=== PATIENT | female | born 1970 | race Caucasian/White ===

== ENCOUNTER → 2016-09-30 | Outpatient (CLI) | payer BC, OTHER ==
[~2016-09-30] VITALS: Ht 165.1 cm; Wt 111.1 kg
[~2016-09-30] MED LIST: ADVIL PO; IBUP600T OR; LIDOCAINE 2% INJ 100 MG/5 ML SDV (FOR ANES.) As Ordered ONE; MULTIVIT PO; OXYB5TA PO; PRILOSEC OTC PO; PROPOFOL 200 MG/20 ML VIAL As Ordered ONE; PROT1TAB2 PO; VICO5TAB OR
--- NOTE | 2016-09-30 13:12 | ROOR ---
Patient Name: Liane Lawson Procedure Date: 09/30/2016 12:37 PM Date of : 1970 Age: 46 [place]: [facility] [place] Gender: Female Note Status: Finalized Procedure: Colonoscopy to Cecum Indications: Colon cancer screening in patient at increased risk: Colorectal cancer in father Providers: Scot Monterroso MD Referring MD: LANE Benitez Requesting Provider: Medicines: Monitored Anesthesia Care Complications: No immediate complications. Procedure: Pre-Anesthesia Assessment: - The heart rate, respiratory rate, oxygen saturations, blood pressure, adequacy of pulmonary ventilation, and response to care were monitored throughout the procedure. The Colonoscope was introduced through the anus and advanced to the cecum, identified by appendiceal orifice and ileocecal valve. The colonoscopy was performed without difficulty. The patient tolerated the procedure well. The quality of the bowel preparation was excellent. Findings: The perianal and digital rectal examinations were normal. Non-bleeding internal hemorrhoids were found during retroflexion. The hemorrhoids were small and Grade I (internal hemorrhoids that do not prolapse). No other significant abnormalities were identified in a careful examination of the remainder of the colon. The exam was otherwise without abnormality on direct and retroflexion views. Impression: - Non-bleeding internal hemorrhoids. - The examination was otherwise normal on direct and retroflexion views. - No specimens collected. - The exam was otherwise normal to the cecum. Recommendation: - Patient has a contact number available for emergencies. The signs and symptoms of potential delayed complications were discussed with the patient. Return to normal activities tomorrow. Written discharge instructions were provided to the patient. - High fiber diet. - Discharge patient to home. - Continue present medications. - Repeat colonoscopy in 5 years for screening purposes. - Return to referring physician. - The findings and recommendations were discussed with the patient's family. Scot Monterroso MD Scot Monterroso MD 09/30/2016 1:11:50 PM This report has been signed electronically. Number of Addenda: 0 Note Initiated On: 09/30/2016 12:37 PM Estimated Blood Loss: Estimated blood loss: none.
[2016-09-30 13:20] VITALS: BP 142/96
== END ==
LOC: M OPP 11:15
PROVIDERS: ATTEND Internal Medicine Gastroenterology
DX: Z12.11 Encounter for screening for malignant neoplasm of colon (principal); K64.0 First degree hemorrhoids; Z80.0 Family history of malignant neoplasm of digestive organs; Z88.5 Allergy status to narcotic agent; Z88.2 Allergy status to sulfonamides; R12 Heartburn; E66.9 Obesity, unspecified; T75.3XXS Motion sickness, sequela; Y93.9 Activity, unspecified; Y92.9 Unspecified place or not applicable; Z79.899 Other long term (current) drug therapy; Z80.42 Family history of malignant neoplasm of prostate; Z57.8 Occupational exposure to other risk factors

== ENCOUNTER → 2018-03-25 | Outpatient (CLI) | payer BC, OTHER | LOC: M ADAMS 11:58 | DX: M54.31 Sciatica, right side (principal) | CPT/HCPCS: 72100 ==

== ENCOUNTER → 2020-07-08 | Outpatient (CLI) | payer BC ==
[~2020-07-08] MED LIST changes: -LIDOCAINE 2% INJ 100 MG/5 ML SDV (FOR ANES.) As Ordered ONE; -OXYB5TA PO; +OXYB5TAB10 PO; -PROPOFOL 200 MG/20 ML VIAL As Ordered ONE
--- NOTE | 2020-07-08 11:31 | REPMRS ---
Patient History The patient states she had a clinical breast exam in 2019. Family history of colorectal cancer at age 50 in father, unknown cancer at age 68 in paternal grandmother. Took hormonal contraceptives for 25 years. Digital Woman Screen Mammo: July 08, 2020 - Exam #: [id number] Bilateral CC and MLO view(s) were taken. Technologist: Cayla Katz, Technologist Prior study comparison: September 12, 2018, bilateral digital mammo screening bilat, performed at [facility]. December 16, 2016, bilateral digital mammo screening bilat, performed at [facility]. November 22, 2015, bilateral digital mammo screening bilat, performed at [facility]. FINDINGS: There are scattered fibroglandular densities. The Volpara volumetric breast density category is: B. There is a moderate amount of residual fibroglandular tissue which is fairly symmetric. There is no interval development of dominant mass, architectural distortion, or grouped microcalcification typical of malignancy. There has been no change in the appearance of the mammogram from the prior studies. 3-D tomosynthesis shows no additional findings. Assessment: BI-RADS/ACR category 1 mammogram. Negative Mammogram. Recommendation Routine screening mammogram of both breasts in 1 year (for women over age 40). This patient's Lifetime Breast Cancer RIsk is estimated at 8.6 %. This mammogram was interpreted with the aid of an FDA-approved computer-aided dectection system. Electronically Signed By: Rancho Chase MD 07/08/20 [id number]
== END ==
LOC: M WHC 10:37
PROVIDERS: ATTEND Obstetrics & Gynecology
DX: Z12.31 Encounter for screening mammogram for malignant neoplasm of breast (principal); Z80.0 Family history of malignant neoplasm of digestive organs; Z92.0 Personal history of contraception

== ENCOUNTER → 2020-08-13 | Outpatient (REF) | payer OTHER ==
[2020-08-13 10:24] LABS: BASO % 0.4 % (0.0-1.0); EOS # 0.1 10^3/uL (0.0-0.5); EOS % 1.8 % (0.0-3.0); HEMATOCRIT 38.7 % (36.0-47.0); HEMOGLOBIN 12.1 g/dl (12.0-15.5); LYMPH # 1.6 10^3/uL (1.5-5.0); LYMPH % 23.9 % (24.0-44.0); MEAN CORPUSCULAR HEMOGLOBIN 26.1 pg (27.0-33.0); MEAN CORPUSCULAR HGB CONC 31.3 g/dl (32.0-36.5); MEAN CORPUSCULAR VOLUME 83.6 fl (80.0-96.0); MONO # 0.3 10^3/uL (0.0-0.8); NEUTROPHILS # 4.7 10^3/uL (1.5-8.5); NEUTROPHILS % 68.5 % (36.0-66.0); PLATELET COUNT, AUTOMATED 192 10^3/uL (150-450); RED BLOOD COUNT 4.63 10^6/uL (4.00-5.40); WHITE BLOOD COUNT 6.8 10^3/uL (4.0-10.0)
[2020-08-13 11:13] LABS: ALBUMIN 3.9 GM/DL (3.2-5.2); ALT/SGPT 25 U/L (12-78); BILIRUBIN,TOTAL 0.4 MG/DL (0.2-1.0); BLOOD UREA NITROGEN 17 MG/DL (7-18); CARBON DIOXIDE LEVEL 28 MEQ/L (21-32); CHLORIDE LEVEL 105 MEQ/L (98-107); CHOLESTEROL LEVEL 230 MG/DL (<200); CHOLESTEROL RISK RATIO 6.216 (<5); CREATININE FOR GFR 0.71 MG/DL (0.55-1.30); GLOMERULAR FILTRATION RATE > 60.0 (>51); GLUCOSE, FASTING 103 MG/DL (70-100); HDL CHOLESTEROL 37 MG/DL (>40); LDL CHOLESTEROL 164 MG/DL (<100); NON-HDL-C 193 MG/DL; POTASSIUM SERUM 4.4 MEQ/L (3.5-5.1); SODIUM LEVEL 139 MEQ/L (136-145); TOTAL 25(OH) VITAMIN D 30.2 NG/ML (30.0-100.0); TOTAL PROTEIN 7.7 GM/DL (6.4-8.2); TRIGLYCERIDES LEVEL 144 MG/DL (<150)
[2020-08-13 12:13] LABS: HEMOGLOBIN A1c 5.4 %
== END ==
LOC: M PLALAB 07:58
PROVIDERS: ATTEND Physician Assistant Medical
DX: K21.9 Gastro-esophageal reflux disease without esophagitis (principal); N39.3 Stress incontinence (female) (male); E66.01 Morbid (severe) obesity due to excess calories; F34.1 Dysthymic disorder; E55.9 Vitamin D deficiency, unspecified; E78.2 Mixed hyperlipidemia; Z80.0 Family history of malignant neoplasm of digestive organs

== ENCOUNTER → 2020-09-03 | Outpatient (CLI) | payer SELFPAY | LOC: M LABSMTC 14:30 | PROVIDERS: ATTEND Pediatrics | DX: Z11.59 Encounter for screening for other viral diseases (principal) ==

== ENCOUNTER 2021-01-16 23:12 | Emergency (ER) | payer BC, SELFPAY ==
[~2021-01-16] VITALS: Ht 165.1 cm; Wt 113.1 kg
[2021-01-16] MEDS ORDERED: TROS60CA2 PO (23:28)
[2021-01-16] MEDS ORDERED: DIAZ2TAB PO (23:28)
[2021-01-16] MEDS ORDERED: DULO1CAP6 PO (23:28)
[2021-01-16] MEDS ORDERED: diazePAM 10MG/2ML SYRINGE (J3360 PER 5MG) IV ONE (23:40)
[2021-01-16] MEDS ORDERED: NS 1,000 ML IV SCH (23:40)
[2021-01-16] MEDS ORDERED: ASPIRIN 81 MG CHEW TABLET PO ONE (23:40)
[2021-01-16 23:47] LABS: BASO % 0.5 % (0.0-1.0); EOS # 0.1 10^3/uL (0.0-0.5); EOS % 1.7 % (0.0-3.0); HEMATOCRIT 37.9 % (36.0-47.0); HEMOGLOBIN 12.3 g/dl (12.0-15.5); LYMPH # 2.8 10^3/uL (1.5-5.0); LYMPH % 32.5 % (24.0-44.0); MEAN CORPUSCULAR HGB CONC 32.5 g/dl (32.0-36.5); MEAN CORPUSCULAR VOLUME 83.3 fl (80.0-96.0); MONO # 0.6 10^3/uL (0.0-0.8); MONO % 6.9 % (2.0-8.0); NEUTROPHILS # 4.9 10^3/uL (1.5-8.5); PLATELET COUNT, AUTOMATED 209 10^3/uL (150-450); RED BLOOD COUNT 4.55 10^6/uL (4.00-5.40); WHITE BLOOD COUNT 8.5 10^3/uL (4.0-10.0)
[2021-01-16 23:58] LABS: INR 0.98; PROTHROMBIN TIME 13.1 SECONDS (12.5-14.3)
[2021-01-17 00:18] LABS: ALBUMIN 4.1 GM/DL (3.2-5.2); ALT/SGPT 26 U/L (12-78); BILIRUBIN,DIRECT < 0.1 MG/DL (0.0-0.2); BILIRUBIN,TOTAL 0.3 MG/DL (0.2-1.0); BLOOD UREA NITROGEN 19 MG/DL (7-18); CALCIUM LEVEL 8.6 MG/DL (8.5-10.1); CARBON DIOXIDE LEVEL 27 MEQ/L (21-32); CHLORIDE LEVEL 105 MEQ/L (98-107); CK-MB VALUE MASS < 1.0 NG/ML (<3.6); CPK CREATINE PHOSPHOKINASE 49 U/L (26-192); CREATININE FOR GFR 0.72 MG/DL (0.55-1.30); FREE T4 1.05 NG/DL (0.76-1.46); GLOMERULAR FILTRATION RATE > 60.0 (>51); GLUCOSE, FASTING 105 MG/DL (70-100); LIPASE 151 U/L (73-393); MB/CK RELATIVE INDEX 2.04 (< OR =4); POTASSIUM SERUM 3.9 MEQ/L (3.5-5.1); SODIUM LEVEL 139 MEQ/L (136-145); TOTAL PROTEIN 7.8 GM/DL (6.4-8.2); TROPONIN I < 0.02 NG/ML (< 0.10)
--- NOTE | 2021-01-17 00:47 | REPVR ---
PROCEDURE INFORMATION: Exam: XR Chest Exam date and time: 01/16/2021 12:08 AM Age: 50 years old Clinical indication: Other: Chest pain TECHNIQUE: Imaging protocol: XR of the chest. Views: 1 view. COMPARISON: No relevant prior studies available. FINDINGS: Lungs: Unremarkable. No consolidation. Pleural spaces: Unremarkable. No pleural effusion. No pneumothorax. Heart/Mediastinum: Unremarkable. No cardiomegaly. Bones/joints: Unremarkable. IMPRESSION: No acute infiltrates. Electronically signed by: Adria Kenyon On 01/17/2021 00:47:14 AM
[2021-01-17 01:25] LABS: D-DIMER QUANT < 270 ng/ml (<500)
[2021-01-17 04:19] LABS: CK-MB VALUE MASS < 1.0 NG/ML (<3.6); CPK CREATINE PHOSPHOKINASE 43 U/L (26-192); MB/CK RELATIVE INDEX 2.33 (< OR =4); TROPONIN I < 0.02 NG/ML (< 0.10)
[2021-01-17 04:45] VITALS: BP 138/74
--- NOTE | 2021-01-17 18:09 | ECGEPIP ---
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
--- NOTE | 2021-01-17 18:12 | ECGEPIP ---
[facility] - ED Test Date: 2021-01-17 Pat Name: HAMIDA MENDOZA Department: Room: - Gender: Female Joint Cutter: ÁNGEL : 1970 Requested By: KORY Casillas Order Number: [id number] Reading MD: Kory Salcedo Measurements Intervals [place] Rate: 77 P: 46 [place]: 138 QRS: -10 QRSD: 98 T: 9 QT: 402 QTc: 454 Interpretive Statements Normal sinus rhythm Nonspecific T wave abnormality Baseline artifact Similar to tracing done 01-16-21 Electronically Signed on 01-17-2021 18:11:46 EDT by Kory Salcedo
== END 2021-01-17 04:52 | disposition home or self-care (01) ==
LOC: M ED 23:12
DX: R07.9 Chest pain, unspecified (principal); R00.2 Palpitations; I10 Essential (primary) hypertension; K21.9 Gastro-esophageal reflux disease without esophagitis; F17.200 Nicotine dependence, unspecified, uncomplicated
CPT/HCPCS: 71045; 80048; 80076; 82550; 82553; 83690; 84439; 84443; 84484; 85025; 85379; 85610; 93005; 93041; 94760; 96361; 96374; 99285; J3360

== ENCOUNTER → 2021-05-02 | Outpatient (CLI) | payer BC, OTHER ==
[~2021-05-02] MED LIST changes: +DIAZ2TAB PO; +DULO1CAP6 PO; +TROS60CA2 PO
== END ==
LOC: M SLEEP 20:00
PROVIDERS: ATTEND Nurse Practitioner Adult Health
DX: G47.33 Obstructive sleep apnea (adult) (pediatric) (principal)

== ENCOUNTER → 2021-05-22 | Outpatient (CLI) | payer BC, OTHER ==
--- NOTE | 2021-05-26 09:38 | SLEEPCENT ---
DATE: 05/22/2021 ORDERED BY: Olimpia Arriaga NP Nocturnal polysomnography was performed for the titration of pressure therapy in this patient with obstructive sleep apnea syndrome, apnea-hypopnea index of 8.8. For testing a ResMed F20 full face mask of medium size was used, 4 cm of water pressure were initially applied to the circuit, and the lights were extinguished. Eight hours and 38 minutes of data were reviewed. There were 408.5 minutes of sleep identified. Sleep latency was short at 9.5 minutes. REM latency was quite prolonged at 414 minutes. Sleep architecture showed poor progression early in the study. There was only one REM cycle late in the test. Overall sleep efficiency was 80.1%. The electrocardiogram showed a sinus rhythm with an average heart rate of 80 beats per minute. EEG showed normal waveforms for wake and sleep. Hypopneic respiratory events prompted increases in pressure therapy. Events persisted. Best sleep was seen on a CPAP pressure of 19 with which pressure the patient slept through REM without respiratory event or oxygen desaturation in the supine posture. There were a few limb movements noted and remaining measures of sleep physiology were normal. IMPRESSION: Obstructive sleep apnea syndrome (G47.33). RECOMMENDATION: Nightly use of pressure therapy 19 cm of water. cc: Margarita Benavidez
== END ==
LOC: M SLEEP 20:00
PROVIDERS: ATTEND Nurse Practitioner Adult Health
DX: G47.33 Obstructive sleep apnea (adult) (pediatric) (principal)

== ENCOUNTER 2021-06-30 12:31 | Outpatient (CLI) | payer BC, OTHER ==
[~2021-06-30] VITALS: Ht 165.1 cm; Wt 108.9 kg
[~2021-06-30 12:31] MED LIST changes: +ACETAMINOPHEN TAB 650MG DOSE (2X325MG) PO PRN; +ALBUTEROL 90 MCG/ACT 8GM HFA INHALER INH PRN; +ALBUTEROL SULFATE 2.5 MG/0.5 ML INH NEB SOLN INH PRN; +EPINEPHrine INJ 1 MG/ML 1ML AMP IM PRN; +NS 1,000 ML IV SCH; +diphenhydrAMINE 50MG/ML VIAL (J1200) IV PRN; +methylPREDNISolone 125MG 2ML VIAL IV PRN
[2021-06-30 12:58] VITALS: BP 143/77
[2021-06-30 13:45] VITALS: BP 149/87
[2021-06-30 14:14] VITALS: BP 140/71
[2021-06-30 14:45] VITALS: BP 154/80
[2021-06-30] MEDS ORDERED: CASIRIVIMAB/IMDEVIMAB 1,200 MG in NS 250 ML IV ONE (15:00)
[2021-06-30 15:46] VITALS: BP 146/75
== END 2021-06-30 15:46 | disposition home or self-care (01) ==
LOC: M OPCLI4PR 12:31 → M MS4PR 12:37 → M OPCLI4PR 15:46
PROVIDERS: ATTEND Family Medicine
DX: U07.1 COVID-19 (principal); Z88.2 Allergy status to sulfonamides
CPT/HCPCS: 96361; M0243

== ENCOUNTER → 2021-09-16 | Outpatient (CLI) | payer BC, OTHER ==
[~2021-09-16] MED LIST changes: -ACETAMINOPHEN TAB 650MG DOSE (2X325MG) PO PRN; -ALBUTEROL 90 MCG/ACT 8GM HFA INHALER INH PRN; -ALBUTEROL SULFATE 2.5 MG/0.5 ML INH NEB SOLN INH PRN; -EPINEPHrine INJ 1 MG/ML 1ML AMP IM PRN; -NS 1,000 ML IV SCH; -diphenhydrAMINE 50MG/ML VIAL (J1200) IV PRN; -methylPREDNISolone 125MG 2ML VIAL IV PRN
--- NOTE | 2021-09-16 14:50 | REPMRS ---
Patient History The patient states she had a clinical breast exam in 2020. Family history of colorectal cancer at age 50 in father, unknown cancer at age 68 in paternal grandmother. Took hormonal contraceptives for 25 years. Tomosynthesis is performed. Volpara breast density is b. Abelino lifetime risk of breast cancer 8.4%. No breast complaints today Patient signed the MRS sheet 1st vaccine [id number] arm 2nd vaccine 10/22-right arm Patient states she has lost 29lbs due to medication in the last year Priors on PACS Patient Identification Verified Digital Woman Screen Mammo: September 16, 2021 - Exam #: [id number] Bilateral CC and MLO view(s) were taken. Technologist: Cayla Katz, Technologist Prior study comparison: July 08, 2020, bilateral digital woman screen mammo performed at [facility]. September 12, 2018, bilateral digital mammo screening bilat, performed at [facility]. FINDINGS: The breast tissue is heterogeneously dense. This may lower the sensitivity of mammography. There has been no change in the appearance of the mammogram from the prior studies. There is a moderate amount of residual fibroglandular tissue which is fairly symmetric. There is no interval development of dominant mass, areas of architectural distortion, or clustered microcalcification typical of malignancy. Assessment: BI-RADS/ACR category 1 mammogram. Negative Mammogram. Recommendation Routine screening mammogram in 1 year (for women over age 40). This mammogram was interpreted with the aid of an FDA-approved computer-aided dectection system. Electronically Signed By: Jadon Davis MD 09/16/21 [id number]
== END ==
LOC: M WHC 13:22
PROVIDERS: ATTEND Nurse Practitioner Women's Health
DX: Z12.31 Encounter for screening mammogram for malignant neoplasm of breast (principal)

== ENCOUNTER → 2021-09-16 | Outpatient (REF) | payer OTHER | LOC: M SFHCWAGY 17:21 | PROVIDERS: ATTEND Nurse Practitioner Women's Health | DX: Z12.4 Encounter for screening for malignant neoplasm of cervix (principal) | CPT/HCPCS: 87624; G0123 ==

== ENCOUNTER → 2022-03-04 | Outpatient (CLI) | payer BC, OTHER ==
[~2022-03-04] MED LIST changes: +ATOR1TAB21 PO; +COLA100C5 PO; +OCUVCAP2 PO; +PANT40TA29 PO; +SEMA1PEN2 SQ; +SUCR1TAB56 PO
== END ==
LOC: M LABSMTC 09:58
PROVIDERS: ATTEND Anesthesiology
DX: Z01.818 Encounter for other preprocedural examination (principal); Z11.52 Encounter for screening for COVID-19

== ENCOUNTER → 2022-05-19 | Outpatient (CLI) | payer BC, OTHER ==
[~2022-05-19] MED LIST changes: +OCUVTAB8 PO
[2022-05-19 10:52] LABS: BASO % 0.3 % (0.0-1.0); EOS # 0.1 10^3/uL (0.0-0.5); EOS % 1.7 % (0.0-3.0); HEMATOCRIT 38.1 % (36.0-47.0); HEMOGLOBIN 12.3 g/dl (12.0-15.5); LYMPH # 1.7 10^3/uL (1.5-5.0); LYMPH % 26.1 % (24.0-44.0); MEAN CORPUSCULAR HEMOGLOBIN 28.5 pg (27.0-33.0); MEAN CORPUSCULAR HGB CONC 32.3 g/dl (32.0-36.5); MEAN CORPUSCULAR VOLUME 88.4 fl (80.0-96.0); MONO # 0.3 10^3/uL (0.0-0.8); MONO % 4.3 % (2.0-8.0); NEUTROPHILS # 4.4 10^3/uL (1.5-8.5); NEUTROPHILS % 67.3 % (36.0-66.0); PLATELET COUNT, AUTOMATED 197 10^3/uL (150-450); RED BLOOD COUNT 4.31 10^6/uL (4.00-5.40); WHITE BLOOD COUNT 6.6 10^3/uL (4.0-10.0)
[2022-05-19 11:10] LABS: HEMOGLOBIN A1c 5.1 %
[2022-05-19 11:31] LABS: ALBUMIN 3.9 GM/DL (3.2-5.2); ALT/SGPT 26 U/L (12-78); BILIRUBIN,TOTAL 0.3 MG/DL (0.2-1.0); BLOOD UREA NITROGEN 10 MG/DL (7-18); CALCIUM LEVEL 9.7 MG/DL (8.5-10.1); CARBON DIOXIDE LEVEL 28 MEQ/L (21-32); CHLORIDE LEVEL 106 MEQ/L (98-107); CHOLESTEROL LEVEL 129 MG/DL (<200); CHOLESTEROL RISK RATIO 3.486 (<5); CREATININE FOR GFR 0.73 MG/DL (0.55-1.30); GLOMERULAR FILTRATION RATE > 60.0 (>51); GLUCOSE, FASTING 101 MG/DL (70-100); HDL CHOLESTEROL 37 MG/DL (>40); LDL CHOLESTEROL 67 MG/DL (<100); NON-HDL-C 92 MG/DL; POTASSIUM SERUM 4.2 MEQ/L (3.5-5.1); SODIUM LEVEL 138 MEQ/L (136-145); TOTAL PROTEIN 7.3 GM/DL (6.4-8.2); TRIGLYCERIDES LEVEL 123 MG/DL (<150)
== END ==
LOC: M PLALAB 07:19
PROVIDERS: ATTEND Physician Assistant Medical
DX: I10 Essential (primary) hypertension (principal); E66.01 Morbid (severe) obesity due to excess calories; E78.2 Mixed hyperlipidemia

== ENCOUNTER → 2022-09-30 | Outpatient (REF) | payer OTHER | LOC: M PLALAB 09:53 | PROVIDERS: ATTEND Nurse Practitioner Family | DX: N95.2 Postmenopausal atrophic vaginitis (principal); Z12.4 Encounter for screening for malignant neoplasm of cervix | CPT/HCPCS: 87624; G0123 ==

== ENCOUNTER → 2022-09-30 | Outpatient (CLI) | payer BC, OTHER | LOC: M WHC 07:56 | PROVIDERS: ATTEND Nurse Practitioner Family | DX: Z12.31 Encounter for screening mammogram for malignant neoplasm of breast (principal) ==

== ENCOUNTER → 2022-12-30 | Outpatient (CLI) | payer BC, OTHER ==
[2022-12-30 11:19] LABS: BASO % 0.3 % (0.0-1.0); EOS # 0.1 10^3/uL (0.0-0.5); EOS % 1.7 % (0.0-3.0); HEMATOCRIT 39.1 % (36.0-47.0); HEMOGLOBIN 12.7 g/dl (12.0-15.5); LYMPH # 1.7 10^3/uL (1.5-5.0); LYMPH % 29.5 % (24.0-44.0); MEAN CORPUSCULAR HEMOGLOBIN 28.5 pg (27.0-33.0); MEAN CORPUSCULAR HGB CONC 32.5 g/dl (32.0-36.5); MEAN CORPUSCULAR VOLUME 87.7 fl (80.0-96.0); MONO # 0.3 10^3/uL (0.0-0.8); MONO % 5.5 % (2.0-8.0); NEUTROPHILS # 3.6 10^3/uL (1.5-8.5); NEUTROPHILS % 61.8 % (36.0-66.0); PLATELET COUNT, AUTOMATED 182 10^3/uL (150-450); RED BLOOD COUNT 4.46 10^6/uL (4.00-5.40); WHITE BLOOD COUNT 5.9 10^3/uL (4.0-10.0)
[2022-12-30 11:48] LABS: THYROID STIMULATING HORMONE 1.254 uIU/ML (0.55-4.78)
[2022-12-30 11:50] LABS: TOTAL 25(OH) VITAMIN D 33.9 NG/ML (20.0-100.0)
[2022-12-30 11:54] LABS: ALKALINE PHOSPHATASE 82 U/L (46-116); ALT/SGPT 10 U/L (7.0-40); AST/SGOT 18 U/L (<34); BILIRUBIN,TOTAL 0.4 MG/DL (0.3-1.2); BLOOD UREA NITROGEN 16 MG/DL (9-23); CARBON DIOXIDE LEVEL 30 MMOL/L (20-31); CHLORIDE LEVEL 106 MMOL/L (98-107); CHOLESTEROL LEVEL 132 MG/DL (<200); CHOLESTEROL RISK RATIO 3.12 (<5); CREATININE FOR GFR 0.71 MG/DL (0.55-1.30); GLOMERULAR FILTRATION RATE > 60.0 (>51); GLUCOSE, FASTING 83 MG/DL (60-100); HDL CHOLESTEROL 42.3 MG/DL (>40); LDL CHOLESTEROL 73.3 MG/DL (<100); NON-HDL-C 89.7 MG/DL; POTASSIUM SERUM 4.4 MMOL/L (3.5-5.1); SODIUM LEVEL 143 MMOL/L (136-145); TOTAL PROTEIN 6.8 G/DL (5.7-8.2); TRIGLYCERIDES LEVEL 82 MG/DL (<150)
== END ==
LOC: M PLALAB 09:03
PROVIDERS: ATTEND Physician Assistant Medical
DX: I10 Essential (primary) hypertension (principal); E66.01 Morbid (severe) obesity due to excess calories; E78.2 Mixed hyperlipidemia

== ENCOUNTER → 2023-08-06 | Outpatient (CLI) | payer BC, OTHER ==
[~2023-08-06] MED LIST changes: -OXYB5TAB10 PO; +OXYB5TAB11 PO
== END ==
LOC: M RAD 06:20
PROVIDERS: ATTEND Orthopaedic Surgery
DX: Z01.818 Encounter for other preprocedural examination (principal); M17.12 Unilateral primary osteoarthritis, left knee

== ENCOUNTER → 2023-08-17 | Outpatient (CLI) | payer BC, OTHER ==
[2023-08-17 11:28] LABS: HEMATOCRIT 39.6 % (36.0-47.0); HEMOGLOBIN 12.8 g/dl (12.0-15.5); MEAN CORPUSCULAR HEMOGLOBIN 28.4 pg (27.0-33.0); MEAN CORPUSCULAR HGB CONC 32.3 g/dl (32.0-36.5); PLATELET COUNT, AUTOMATED 209 10^3/uL (150-450); WHITE BLOOD COUNT 6.2 10^3/uL (4.0-10.0)
[2023-08-17 11:34] LABS: INR 1.06; PROTHROMBIN TIME 13.5 SECONDS (12.5-14.5)
[2023-08-17 11:46] LABS: ERYTHROCYTE SEDIMENTATION RATE 37 mm/hr (0-30)
[2023-08-17 11:53] LABS: ALBUMIN 4.1 G/DL (3.2-5.2); ALKALINE PHOSPHATASE 89 U/L (46-116); ALT/SGPT 32 U/L (7.0-40); AST/SGOT 18 U/L (<34); BILIRUBIN,TOTAL 0.6 MG/DL (0.3-1.2); BLOOD UREA NITROGEN 14 MG/DL (9-23); CALCIUM LEVEL 9.5 MG/DL (8.5-10.1); CARBON DIOXIDE LEVEL 28 MMOL/L (20-31); CHLORIDE LEVEL 103 MMOL/L (98-107); CREATININE FOR GFR 0.59 MG/DL (0.55-1.30); GLOMERULAR FILTRATION RATE > 60.0 (>51); GLUCOSE, FASTING 103 MG/DL (60-100); POTASSIUM SERUM 4.2 MMOL/L (3.5-5.1); SODIUM LEVEL 136 MMOL/L (136-145); TOTAL PROTEIN 7.1 G/DL (5.7-8.2)
== END ==
LOC: M PLALAB 07:20
PROVIDERS: ATTEND Orthopaedic Surgery
DX: Z01.818 Encounter for other preprocedural examination (principal); M17.12 Unilateral primary osteoarthritis, left knee

== ENCOUNTER 2023-10-07 20:59 | Emergency (ER) | payer BC, OTHER ==
[~2023-10-07] VITALS: Ht 165.1 cm; Wt 93.1 kg
[2023-10-07] MEDS ORDERED: ASPI-256 PO (21:11)
[2023-10-07 23:04] VITALS: BP 140/86; TEMP 98.2; O2SAT 98
== END 2023-10-08 00:15 | disposition left against medical advice (07) ==
LOC: M ED 20:59
DX: Z53.21 Procedure and treatment not carried out due to patient leaving prior to being seen by health care provider (principal)

== ENCOUNTER → 2023-11-09 | Outpatient (REF) | payer BC, OTHER ==
[~2023-11-09] MED LIST changes: +ASPI-256 PO; -OXYB5TAB11 PO; +OXYB5TAB14 PO
[2023-11-09 17:29] LABS: RSV AMPLIFICATION NEGATIVE (NEGATIVE)
== END ==
LOC: M LAB REF 16:11
PROVIDERS: ATTEND Physician Assistant
DX: J06.9 Acute upper respiratory infection, unspecified (principal)

== ENCOUNTER → 2024-01-14 | Outpatient (CLI) | payer BC | LOC: M WHC 07:50 | PROVIDERS: ATTEND Nurse Practitioner Family | DX: Z12.31 Encounter for screening mammogram for malignant neoplasm of breast (principal) ==

== ENCOUNTER → 2024-01-27 | Outpatient (CLI) | payer BC | LOC: M WHC 09:47 | PROVIDERS: ATTEND Nurse Practitioner Family | DX: Z12.31 Encounter for screening mammogram for malignant neoplasm of breast (principal); N63.21 Unspecified lump in the left breast, upper outer quadrant | CPT/HCPCS: 76641; 77065; G0279 ==

== ENCOUNTER → 2024-02-24 | Outpatient (CLI) | payer BC ==
[~2024-02-24] MED LIST changes: +LIDOCAINE 1% MDV 20ML VIAL ONE
[2024-02-24 13:58] VITALS: TEMP 98.5
[2024-02-24 14:13] VITALS: BP 138/86; O2SAT 96
== END ==
LOC: M WHCPRO 07:41
PROVIDERS: ATTEND Nurse Practitioner Family
DX: R92.8 Other abnormal and inconclusive findings on diagnostic imaging of breast (principal); N63.23 Unspecified lump in the left breast, lower outer quadrant; N63.21 Unspecified lump in the left breast, upper outer quadrant

== ENCOUNTER → 2024-08-30 | Outpatient (CLI) | payer BC ==
[~2024-08-30] MED LIST changes: -LIDOCAINE 1% MDV 20ML VIAL ONE
== END ==
LOC: M WHC 13:34
PROVIDERS: ATTEND Nurse Practitioner Family
DX: Z53.9 Procedure and treatment not carried out, unspecified reason (principal)

== ENCOUNTER → 2025-04-18 | Outpatient (CLI) | payer BC | LOC: M WHC 14:12 | PROVIDERS: ATTEND Advanced Practice Midwife | DX: Z12.31 Encounter for screening mammogram for malignant neoplasm of breast (principal); R92.333 Mammographic heterogeneous density, bilateral breasts ==